=== PATIENT | male | born 1990 | race Caucasian/White ===

== ENCOUNTER 2017-09-17 09:27 | Emergency (ER) | payer OTHER, BC ==
[~2017-09-17] VITALS: Ht 188 cm; Wt 120.2 kg
== END 2017-09-17 10:06 | disposition home or self-care (01) ==
LOC: ED 09:27
PROC: 0HQGXZZ Repair Left Hand Skin, External Approach (ICD-10-PCS; principal; 2017-09-17)
DX: S61.217A Laceration without foreign body of left little finger without damage to nail, initial encounter (principal); W26.0XXA Contact with knife, initial encounter
CPT/HCPCS: 12001; 99282

== ENCOUNTER 2018-07-31 09:40 | Emergency (ER) | payer OTHER ==
[~2018-07-31] VITALS: Ht 188 cm; Wt 120.2 kg
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
== END 2018-07-31 10:15 | disposition home or self-care (01) ==
LOC: ED 09:40
DX: H10.9 Unspecified conjunctivitis (principal); F17.200 Nicotine dependence, unspecified, uncomplicated
CPT/HCPCS: 99283

== ENCOUNTER 2021-01-02 06:26 | Day surgery (SDC) | payer OTHER ==
[~2021-01-02] VITALS: Ht 188 cm; Wt 129.5 kg
--- NOTE | 2021-01-02 08:35 | NUR ---
01/02/21 0835 Silva Mckeon 0855-PATIENT ARRIVED TO PACU ON 6L MASK RR EVEN DROWSY. AROUSES TO VERBAL STIMULI AND FOLLOWS COMMANDS. DENIES PAIN OR NAUSEA. CLOSES EYES. ST. IVF INFUSING. NO DRAINAGE NOTED
--- NOTE | 2021-01-02 09:22 | NUR ---
0853: PT RETURNS TO ROOM 6 VIA STRETCHER FROM PACU. AWAKE AND ALERT ON ARRIVAL. VSS, RESP EVEN AND UNLABORED. REPORTS JOSE MANUEL PAIN LEVEL, 6/10. DENIES NAUSEA. SOFT FOOD DIET DISCUSSED AND PT PROVIDED ICE WATER AND JELLO. ATTENTIVE AT THE BEDSIDE. IV CONVERTED TO SL. NO NEEDS VOICED, CALL LIGHT WITHIN REACH
--- NOTE | 2021-01-02 10:25 | NUR ---
1000: PT AWAKE AND ALERT WATCHING TV IN BED. VSS, RESP EVEN AND UNLABORED. CONTS TO DENY NAUSEA AND REPORT JOSE MANUEL PAIN LEVEL, 6/10. JOSE MANUEL PO INTAKE WELL. DANGLES AT THE BEDSIDE, JOSE MANUEL WELL. DENIES DIZZINESS AND SOB. AMBULATES TO BR WITH STANDBY ASSIST FROM THIS RN, STEADY GAIT. SUCCESSFUL POSTOP VOID, 150ML. BACK TO ROOM 6 TO PREPARE FOR DC 1015: SL DC'D WITH CATH TIP INTACT AND PRESSURE APPLIED TO SITE, WNL. DC INSTRUCTIONS PROVIDED AND DISCUSSED ORDERED. PT VOICES UNDERSTANDING AND DENIES QUESTIONS AND CONCERNS AT THIS TIME. PRESCRIPTION GIVEN TO TO FILL. PT WHEELED OFF OF UNIT BY THIS RN IN . TRANSFERS INTO VEHICLE INDEPENDENTLY AND APPROPRIATELY. NO PHYSICAL S/S OF DISTRESS AT THIS TIME
--- NOTE | 2021-01-09 15:38 | OR ---
[facility] [address], [place] [address] Signed DATE OF OPERATION: 01/02/2021 SURGEON: Fernando Rodrigues MD PREOPERATIVE DIAGNOSIS: Tonsillar hypertrophy with sleep-disordered breathing. POSTOPERATIVE DIAGNOSIS: Tonsillar hypertrophy with sleep-disordered breathing. PROCEDURE: Tonsillectomy. ANESTHESIA: General orotracheal; A[employer]ICULT[employer] RESEARCH TECHNOLOGIST, Shlomo. PREOPERATIVE HISTORY: Mark Anthony is a 30-year-old male with massively enlarged tonsils, obstructive causing disrupted sleep, snoring, probable sleep apnea, recent infections, strep throat, taken to the operating room for the above-mentioned procedures. OPERATIVE PROCEDURE AND FINDINGS: After informed consent, the patient was taken to the operating room, placed in the supine position where general orotracheal anesthesia was induced. The patient and procedure were verified. The patient was repositioned. McIvor mouth gag placed into suspension. Headlight exam of the pharynx showed markedly massively enlarged tonsils, not acutely infected, very obstructive cryptic . The left tonsil was grasped with a tenaculum, retracted medially, and removed from its fossa with mucosal-sparing incisions with Coblation. Field was dry after the procedure, same procedure on the right tonsil. Tonsils sent to pathology. Mouth gag was released for several minutes. Reinspection showed no bleeding points. The pharynx was suctioned clear of blood secretions. Mouth gag was removed. The patient was awakened, extubated, transported to the recovery room in good condition. No complications. BLOOD LOSS: Minimal. SPECIMEN: To pathology. Electronically Signed By: FERNANDO RODRIGUES MD 01/09/21 1538 PATIENT NAME: MARK ANTHONY PHILLIPS OPERATIVE REPORT DATE OF : [birth year] REPORT #: [id number] PHYSICIAN: FERNANDO RODRIGUES MD PCP: JESUS ALBERTO MARTIN PAC REPORT IS CONFIDENTIAL AND NOT TO BE RELEASED WITHOUT AUTHORIZATION [facility] [address] [place] [id number] Signed DRAINS: No drains. Fernando Rodrigues MD GC/MODL /[id number] Copies: ~ Electronically Signed By: FERNANDO RODRIGUES MD 01/09/21 1538 PATIENT NAME: MARK ANTHONY PHILLIPS OPERATIVE REPORT DATE OF : [birth year] REPORT #: [id number] PHYSICIAN: FERNANDO RODRIGUES MD PCP: ADDLEMAN,JESUS ALBERTO K PAC REPORT IS CONFIDENTIAL AND NOT TO BE RELEASED WITHOUT AUTHORIZATION
== END 2021-01-02 10:15 | disposition home or self-care (01) ==
LOC: DS 06:26 → OPS 07:30 → DS 07:30
PROVIDERS: ATTEND Otolaryngology
PROC: 0CTPXZZ Resection of Tonsils, External Approach (ICD-10-PCS; principal; 2021-01-02 07:30)
DX: J35.1 Hypertrophy of tonsils (principal); J03.90 Acute tonsillitis, unspecified; R06.83 Snoring; Z20.822 Contact with and (suspected) exposure to COVID-19; Z72.0 Tobacco use
CPT/HCPCS: 00170; J0131; J0330; J1100; J2001; J2405; J2704; J3010; J7121

== ENCOUNTER 2023-11-13 09:58 | Emergency (ER) | payer OTHER ==
[~2023-11-13] VITALS: Ht 188 cm; Wt 110.0 kg
[2023-11-13] MEDS ORDERED: OZEMPIC2 MG/0.75 SQ (10:24)
[2023-11-13] MEDS ORDERED: predniSONE 20 MG TAB PO ONE (11:00)
[2023-11-13] MEDS ORDERED: LIDOCAINE HCL 4% 1 EACH PATCH TD ONE ×2 (11:00)
[2023-11-13] MEDS ORDERED: HYDROCODONE/ACETA 7.5/325 TAB PO ONE (11:00)
[2023-11-13] MEDS ORDERED: HYDROCODON-ACE1 EA11 PO (11:03)
[2023-11-13] MEDS ORDERED: METHYLPREDNISOLO4 M1 PO (11:03)
[2023-11-13 11:20] VITALS: BP 125/83
[2023-11-13] MEDS ORDERED: LIDOCAINE PATCH REMOVAL 1 EA TD SCH ×2 (21:00)
== END 2023-11-13 11:20 | disposition home or self-care (01) ==
LOC: ED 09:58
DX: M46.1 Sacroiliitis, not elsewhere classified (principal); F17.200 Nicotine dependence, unspecified, uncomplicated; Z79.899 Other long term (current) drug therapy
CPT/HCPCS: 99283; A9270; J7512